=== PATIENT | male | born 1990 | race Caucasian/White ===

== ENCOUNTER → 2024-12-03 14:05 | Outpatient (BNVA) | payer OTHER, SELFPAY | PROVIDERS: Family Provider Family Medicine; PCP Family Medicine; Visit Provider Family Medicine | DX: Z00.00 Encounter for general adult medical examination without abnormal findings (principal); R53.83 Other fatigue; R79.89 Other specified abnormal findings of blood chemistry; E03.9 Hypothyroidism, unspecified | CPT/HCPCS: 80053; 80061; 82040; 82607; 84270; 84403; 84443; 84481; 85025 ==